=== PATIENT | male | born 1935 | race Caucasian/White ===

== ENCOUNTER 2017-11-15 00:32 | Emergency (ER) | payer MEDICARE ==
[~2017-11-15] VITALS: Ht 172.7 cm; Wt 77.1 kg
[~2017-11-15 00:32] MED LIST: ACET325 PO; ALPR1 PO; ASPI81CH; Antacid-Simeth360 ML PO; BISA10S PR; CALGLU500; CHOL10002 PO; CICL.77TC TOP; CLIN300 PO; CLOB.05TC TOP; CYCL10 PO; DEPO-TESTOSTERONE IM; DILT120ERA PO; DOCU100 PO; Depo-Testos200 MG/ML IM; ESCI10 PO; FAMO20 PO; FOSI10; FOSI10 PO; Fleet Enema132 ML PR; Florastor250 MG PO; Fosinopril Sodi20 MG PO; GLYCAS PR; HYDACE10B PO; HYDACE5325 PO; HYDR1TAB94; IBUP600; IPRA.03NI; LANS30EC PO; Lyrica75 MG PO; META800 PO; MULVITMIND PO; MULVITMINF; Milk Of Ma400 MG/5 M PO; NAPR220; OXYC5 PO; PARO10; POLY500; PRAV10; PREG150 PO; PREG75 PO; PROM25 PO; ROSU5 PO; TAMS.4ER; Thera Tears1 EAC1 BOTHEYES; Thera Tears1 EAC1 OP; VENL150ER PO; WARF4; WARF5 PO; WARF6 PO; XARELTO15 MG PO; [UNRECOGNIZED DRUG - OTHER] PO
[2017-11-15 01:43] LABS: BASOPHILS ABSOLUTE AUTO 0.02 K/mm3 (0.00-0.23); BASOPHILS PERCENT AUTO 0 % (0-2); EOSINOPHILS ABSOLUTE AUTO 0.08 K/mm3 (0.00-0.68); EOSINOPHILS PERCENT AUTO 1 % (0-6); Hematocrit 49.5 % (37.0-53.0); Hemoglobin 16.2 g/dL (13.5-17.5); IMMATURE GRAN ABSOLUTE AUTO 0.02 K/mm3 (0.00-0.10); IMMATURE GRAN PERCENT AUTO 0 % (0-1); LYMPHOCYTES ABSOLUTE AUTO 1.15 K/mm3 (0.84-5.20); LYMPHOCYTES PERCENT AUTO 18 % (21-46); MONOCYTES ABSOLUTE AUTO 0.76 K/mm3 (0.16-1.47); MONOCYTES PERCENT AUTO 12 % (4-13); Mean Corpuscular HGB 30.1 pg (26.0-34.0); Mean Corpuscular HGB Conc 32.7 g/dL (31.5-36.5); Mean Corpuscular Volume 92 fL (80-100); NEUTROPHILS PERCENT AUTO 68 % (41-73); Platelet Count 178 K/mm3 (150-400); RDW Coefficient Variation 15.3 % (11.7-14.2); RDW Standard Deviation 51.5 fL (35.1-46.3); Red Blood Cell Count 5.39 M/mm3 (4.30-5.90); White Blood Cell Count 6.33 K/mm3 (4.00-11.30)
[2017-11-15 02:02] LABS: Alanine Aminotransfer (ALT/SGP 32 U/L (12-78); Albumin, Blood 3.3 g/dL (3.4-5.0); Albumin/Globulin Ratio 1.1 (0.8-1.8); Alk Phos 82 U/L (50-136); Anion Gap 7 mmol/L (6-16); Aspartate Aminotrans (AST/SGOT 26 U/L (12-37); Bilirubin, Total 0.3 mg/dL (0.1-1.0); Blood Urea Nitrogen 17 mg/dL (8-24); Bun/Creatinine Ratio 18.6 (12.0-20.0); CO2, Blood 24 mmol/L (21-32); Calcium, Blood 9.1 mg/dL (8.5-10.1); Chloride, Blood 112 mmol/L (98-108); Creatinine, Blood 0.91 mg/dL (0.60-1.20); Glomerular Filtration Rate >60 (60-); Glucose, Blood 104 mg/dL (70-99); Potassium, Blood 4.4 mmol/L (3.5-5.5); Sodium, Blood 143 mmol/L (136-145); Total Protein, Blood 6.3 g/dL (6.4-8.2)
[2017-11-15] MEDS ORDERED: Flomax0.4 MG PO (03:30)
[2017-11-15] MEDS ORDERED: Zofran Odt4 MG SL (03:30)
[2017-11-15] MEDS ORDERED: Norco 5-325 Ta1 EACH PO (03:30)
== END 2017-11-15 04:00 | disposition home or self-care (01) ==
LOC: ER 00:32
PROVIDERS: Emergency Medicine
DX: N20.0 Calculus of kidney (principal); Z88.8 Allergy status to other drugs, medicaments and biological substances; Z79.899 Other long term (current) drug therapy; Z79.01 Long term (current) use of anticoagulants; Z79.891 Long term (current) use of opiate analgesic; I10 Essential (primary) hypertension; E78.5 Hyperlipidemia, unspecified; F32.9 Major depressive disorder, single episode, unspecified
CPT/HCPCS: 74176; 80053; 81000; 85025; 93005; 93010; 96374; 96375; 99284; J1170; J2405; J3010

== ENCOUNTER 2017-12-11 14:14 | Emergency (ER) | payer MEDICARE ==
[~2017-12-11] VITALS: Ht 170.2 cm; Wt 88.5 kg
[~2017-12-11 14:14] MED LIST changes: +Flomax0.4 MG PO; +Norco 5-325 Ta1 EACH PO; +Zofran Odt4 MG SL
== END 2017-12-11 17:45 | disposition home or self-care (01) ==
LOC: ER 14:14
DX: M54.5 Low back pain (principal); G89.29 Other chronic pain; I10 Essential (primary) hypertension; E78.5 Hyperlipidemia, unspecified; F32.9 Major depressive disorder, single episode, unspecified; Z88.8 Allergy status to other drugs, medicaments and biological substances; Z79.899 Other long term (current) drug therapy; Z79.01 Long term (current) use of anticoagulants; Z86.711 Personal history of pulmonary embolism
CPT/HCPCS: 72100; 96372; 99284; J1170

== ENCOUNTER → 2018-12-27 | Outpatient (CLI) | payer MEDICARE | END | disposition home or self-care (01) | LOC: LAB SHORT 16:55 → LAB 16:55 | DX: L73.8 Other specified follicular disorders (principal) | CPT/HCPCS: 87070; 87205 ==

== ENCOUNTER 2019-06-15 06:59 | Day surgery (SDC) | payer MEDICARE ==
[~2019-06-15 06:59] MED LIST changes: +Afrin15 ML; +CLINGEL; +DOXY100 PO; +MIRALAX17 GM; +Prevacid Soluta30 MG PO; +Vitamin B Comple1 EA PO; -WARF4; +WARF4 PO
--- NOTE | 2019-06-15 07:17 | NUR ---
History, Chart, Medications and Allergies reviewed before start of procedure. Patient confirms NPO status and agrees with scheduled surgery. Patient States Post-Procedure ride home has been arranged. Patient denies having an allergy to naloxone, valacyclovir, and sildenafil and requests their removal from his allegery list. States he doesn't recognize most of the allergies/adverse reactions on his list.
--- NOTE | 2019-06-15 08:11 | NUR ---
PATIENT STATES HE LEFT HIS DENTURES AT HOME. HE GAVE HIS WATCH AND NECKLACES TO HIS DAUGHTER FOR SAFE KEEPING.
--- NOTE | 2019-06-15 11:14 | NUR ---
Discharge instructions reviewed with patient. Patient verbalizes understanding. Copy given to patient to take home. PTS DAUGHER PRESENT, REPORTS SHE IS STAYING WITH HIM. Patient States Post-Procedure ride home has been arranged. Discharged via wheelchair to private car for ride home.
--- NOTE | 2019-06-18 13:50 | NUR ---
06/18/19 1350 Imani Garcia VERIFICATIONS: EDIT CHART.
== END 2019-06-15 11:10 | disposition home or self-care (01) ==
LOC: ORSCMMR 06:59 → ORD 08:30 → ORSCMMR 08:30
PROVIDERS: Surgery
PROC: 0DBM8ZX Excision of Descending Colon, Via Natural or Artificial Opening Endoscopic, Diagnostic (ICD-10-PCS; principal; 2019-06-15 08:30)
PROC: 06BY0ZC Excision of Hemorrhoidal Plexus, Open Approach (ICD-10-PCS; principal; 2019-06-15 08:30)
DX: K64.2 Third degree hemorrhoids (principal); D37.4 Neoplasm of uncertain behavior of colon; K57.30 Diverticulosis of large intestine without perforation or abscess without bleeding; Z86.010 Personal history of colon polyps; I10 Essential (primary) hypertension; G47.33 Obstructive sleep apnea (adult) (pediatric); K21.9 Gastro-esophageal reflux disease without esophagitis; E78.00 Pure hypercholesterolemia, unspecified; Z79.899 Other long term (current) drug therapy
CPT/HCPCS: 88304; J1100; J1885; J2250; J2405; J2704; J3010; J7120

== ENCOUNTER → 2019-08-09 | Outpatient (CLI) | payer MEDICARE | END | disposition home or self-care (01) | LOC: LAB 15:02 → LAB SHORT 15:02 | DX: L08.0 Pyoderma (principal) | CPT/HCPCS: 87070; 87205 ==

== ENCOUNTER 2020-08-07 06:50 | Emergency (ER) | payer MEDICARE ==
[~2020-08-07] VITALS: Ht 182.9 cm; Wt 99.8 kg
[~2020-08-07 06:50] MED LIST changes: +CEPH500; -CHOL10002 PO; +ELIQUIS5 MG PO; +VITAMIN D325 MC3 PO
[2020-08-07] MEDS ORDERED: Robaxin-750750 MG PO (08:24)
== END 2020-08-07 08:46 | disposition home or self-care (01) ==
LOC: ER 06:50
DX: S39.012A Strain of muscle, fascia and tendon of lower back, initial encounter (principal); G89.29 Other chronic pain; I10 Essential (primary) hypertension; E78.5 Hyperlipidemia, unspecified; F32.9 Major depressive disorder, single episode, unspecified; Z79.01 Long term (current) use of anticoagulants; Z88.1 Allergy status to other antibiotic agents; Z88.8 Allergy status to other drugs, medicaments and biological substances; Z79.899 Other long term (current) drug therapy; X58.XXXA Exposure to other specified factors, initial encounter
CPT/HCPCS: 72100; 99283-25

== ENCOUNTER → 2020-09-09 | Outpatient (CLI) | payer MEDICARE ==
[~2020-09-09] MED LIST changes: +Robaxin-750750 MG PO
[2020-09-09 15:49] LABS: Calcium, Urine 10.7 mg/dL (< 17.5); Calcium, Urine Calculation 120.4 mg/24hrs (42.0-353.0)
== END ==
LOC: LAB 09:30 → LAB SHORT 09:30 → LAB FUT 08-27 17:30
PROVIDERS: Internal Medicine
DX: E83.52 Hypercalcemia (principal)
CPT/HCPCS: 81050; 82340

== ENCOUNTER → 2021-07-28 | Outpatient (CLI) | payer MEDICARE | END | disposition home or self-care (01) | LOC: LAB SHORT 15:45 → LAB 15:45 | DX: C44.622 Squamous cell carcinoma of skin of right upper limb, including shoulder (principal); L57.0 Actinic keratosis | CPT/HCPCS: 88305 ==

== ENCOUNTER → 2021-10-05 | Outpatient (CLI) | payer MEDICARE | LOC: LAB SHORT 08:12 | DX: D48.5 Neoplasm of uncertain behavior of skin (principal); D04.21 Carcinoma in situ of skin of right ear and external auricular canal; L90.5 Scar conditions and fibrosis of skin | CPT/HCPCS: 88305 ==

== ENCOUNTER 2022-02-08 13:23 | Day surgery (SDC) | payer MEDICARE ==
[~2022-02-08] VITALS: Ht 170.2 cm; Wt 92.2 kg
== END 2022-02-08 16:20 | disposition home or self-care (01) ==
LOC: ORSCSDS 13:23
PROVIDERS: Internal Medicine Gastroenterology
PROC: 0D757ZZ Dilation of Esophagus, Via Natural or Artificial Opening (ICD-10-PCS; principal; 2022-02-08 15:00)
PROC: 0DB58ZX Excision of Esophagus, Via Natural or Artificial Opening Endoscopic, Diagnostic (ICD-10-PCS; principal; 2022-02-08 15:00)
PROC: 0DB78ZX Excision of Stomach, Pylorus, Via Natural or Artificial Opening Endoscopic, Diagnostic (ICD-10-PCS; principal; 2022-02-08 15:00)
DX: R13.14 Dysphagia, pharyngoesophageal phase (principal); K21.00 Gastro-esophageal reflux disease with esophagitis, without bleeding; K22.2 Esophageal obstruction; I10 Essential (primary) hypertension; G47.33 Obstructive sleep apnea (adult) (pediatric); Z79.899 Other long term (current) drug therapy; Z79.01 Long term (current) use of anticoagulants
CPT/HCPCS: 88305; 88312; 88342; A9270; J2704; J7120

== ENCOUNTER → 2022-03-24 | Outpatient (CLI) | payer MEDICARE | END | disposition home or self-care (01) | LOC: PLD 14:53 → LAB SHORT 14:53 | DX: L57.0 Actinic keratosis (principal) | CPT/HCPCS: 88305 ==

== ENCOUNTER 2023-06-27 11:43 | Day surgery (SDC) | payer MEDICARE ==
[~2023-06-27] VITALS: Ht 170.2 cm; Wt 91.5 kg
[2023-06-27] MEDS ORDERED: AFRIN15 M6 (12:11)
[2023-06-27] MEDS ORDERED: NEURIVA (12:11)
[2023-06-27 13:54] VITALS: BP 109/73
== END 2023-06-27 13:54 | disposition home or self-care (01) ==
LOC: ORSCSDS 11:43
PROVIDERS: Internal Medicine Gastroenterology
PROC: 0DB48ZX Excision of Esophagogastric Junction, Via Natural or Artificial Opening Endoscopic, Diagnostic (ICD-10-PCS; principal; 2023-06-27 13:15)
PROC: 0DB68ZX Excision of Stomach, Via Natural or Artificial Opening Endoscopic, Diagnostic (ICD-10-PCS; principal; 2023-06-27 13:15)
PROC: 0D758ZZ Dilation of Esophagus, Via Natural or Artificial Opening Endoscopic (ICD-10-PCS; principal; 2023-06-27 13:15)
DX: R13.10 Dysphagia, unspecified (principal); K21.00 Gastro-esophageal reflux disease with esophagitis, without bleeding; K29.00 Acute gastritis without bleeding; K31.A0 Gastric intestinal metaplasia, unspecified; K22.2 Esophageal obstruction; J44.9 Chronic obstructive pulmonary disease, unspecified; I12.9 Hypertensive chronic kidney disease with stage 1 through stage 4 chronic kidney disease, or unspecified chronic kidney disease; N18.9 Chronic kidney disease, unspecified; G47.33 Obstructive sleep apnea (adult) (pediatric); Z86.711 Personal history of pulmonary embolism; Z87.11 Personal history of peptic ulcer disease; Z79.01 Long term (current) use of anticoagulants; Z79.899 Other long term (current) drug therapy
CPT/HCPCS: 82947; 88305; 88312; 88342; J2704; J7120

== ENCOUNTER → 2023-07-25 | Outpatient (CLI) | payer MEDICARE ==
[~2023-07-25] MED LIST changes: +AFRIN15 M6; +NEURIVA
[2023-07-25 18:17] LABS: Calcium, Urine 10.3 mg/dL (< 17.5); Calcium, Urine Calculation 72.1 mg/24hrs (42.0-353.0)
== END | disposition home or self-care (01) ==
LOC: LAB 07:00 → LAB SHORT 07:00
PROVIDERS: Internal Medicine
DX: E83.52 Hypercalcemia (principal)
CPT/HCPCS: 81050; 82340

== ENCOUNTER 2024-03-28 20:53 | Emergency (ER) | payer MEDICARE ==
[~2024-03-28] VITALS: Ht 170.2 cm; Wt 88.5 kg
[~2024-03-28 20:53] MED LIST changes: -CEPH500; +CEPH500 PO
[2024-03-28 22:24] LABS: BASOPHILS ABSOLUTE AUTO 0.02 K/mm3 (0.00-0.23); BASOPHILS PERCENT AUTO 0 % (0-2); EOSINOPHILS ABSOLUTE AUTO 0.04 K/mm3 (0.00-0.68); EOSINOPHILS PERCENT AUTO 0 % (0-6); Hematocrit 48.9 % (37.0-53.0); IMMATURE GRAN ABSOLUTE AUTO 0.11 K/mm3 (0.00-0.10); IMMATURE GRAN PERCENT AUTO 1 % (0-1); LYMPHOCYTES ABSOLUTE AUTO 2.19 K/mm3 (0.84-5.20); LYMPHOCYTES PERCENT AUTO 22 % (21-46); MONOCYTES ABSOLUTE AUTO 2.16 K/mm3 (0.16-1.47); MONOCYTES PERCENT AUTO 22 % (4-13); Mean Corpuscular HGB 30.7 pg (26.0-34.0); Mean Corpuscular HGB Conc 32.7 g/dL (31.5-36.5); Mean Corpuscular Volume 94 fL (80-100); Mean Platelet Volume 9.9 fL (9.1-12.4); NEUTROPHILS ABSOLUTE AUTO 5.41 K/mm3 (1.96-9.15); NEUTROPHILS PERCENT AUTO 54 % (41-73); Platelet Count 174 K/mm3 (150-400); RDW Coefficient Variation 13.2 % (11.7-14.2); RDW Standard Deviation 44.9 fL (35.1-46.3); Red Blood Cell Count 5.21 M/mm3 (4.30-5.90); White Blood Cell Count 9.93 K/mm3 (4.00-11.30)
[2024-03-28 22:47] LABS: Albumin, Blood 3.9 g/dL (3.4-5.0); Albumin/Globulin Ratio 1.1 (0.8-1.8); Bilirubin, Total 0.5 mg/dL (0.1-1.0); Bun/Creatinine Ratio 20.8 (12.0-20.0); Calcium, Blood 9.8 mg/dL (8.5-10.1); Creatinine, Blood 1.01 mg/dL (0.60-1.20); Globulin, Blood 3.4 g/dL (2.2-4.0); Potassium, Blood 4.5 mmol/L (3.5-5.5); Total Protein, Blood 7.3 g/dL (6.4-8.2)
[2024-03-28] MEDS ORDERED: Lidocaine 4% 1 Patch TOP ONE (23:15)
[2024-03-29] MEDS ORDERED: Ketorolac Tromethamine 30mg Vial IV ONE ×2 (00:10→05:25)
[2024-03-29] MEDS ORDERED: LIDO700A20 TOP (04:51)
[2024-03-29 04:55] VITALS: BP 130/75
== END 2024-03-29 06:10 | disposition home or self-care (01) ==
LOC: ER 20:53
PROVIDERS: Physician Assistant
DX: S22.41XA Multiple fractures of ribs, right side, initial encounter for closed fracture (principal); S20.20XA Contusion of thorax, unspecified, initial encounter; G47.33 Obstructive sleep apnea (adult) (pediatric); I12.9 Hypertensive chronic kidney disease with stage 1 through stage 4 chronic kidney disease, or unspecified chronic kidney disease; N18.9 Chronic kidney disease, unspecified; E78.5 Hyperlipidemia, unspecified; K21.9 Gastro-esophageal reflux disease without esophagitis; W18.30XA Fall on same level, unspecified, initial encounter; Z79.899 Other long term (current) drug therapy; Z88.5 Allergy status to narcotic agent; Z88.1 Allergy status to other antibiotic agents; Z88.8 Allergy status to other drugs, medicaments and biological substances
CPT/HCPCS: 71101; 74177; 80053; 85025; 96374-59; 96376; 99284-25; A9270; J1885; Q9967

== ENCOUNTER 2024-04-11 12:26 | Observation (INO) | payer MEDICARE ==
[~2024-04-11] VITALS: Ht 170.2 cm; Wt 90.6 kg
[~2024-04-11 12:26] MED LIST changes: +LIDO700A20 TOP
[2024-04-11] MEDS ORDERED: Acetaminophen 500 MG Tab PO ONE (13:30)
[2024-04-11] MEDS ORDERED: Methocarbamol 500 MG Tab PO ONE (14:20)
[2024-04-11] MEDS ORDERED: HYDROcodone 5-APAP 325 TAB PO PRN (17:05)
[2024-04-11] MEDS ORDERED: Methocarbamol 500 MG Tab PO PRN (17:10)
[2024-04-11 18:25] VITALS: BP 134/94
--- NOTE | 2024-04-11 18:37 | NUR ---
Pt arrival to PCU 8. He is alert, oriented and pleasantly conversant. Three of his 4 daughters are in the room, and his son in law as well at bedside. Pt states he uses a CPAP at home, but doesn't want to have it tonight. 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 Vital signs are stable. Pt denies any pain except for his chronic pain in his neck and back. He is sitting on the side of the bed.
[2024-04-11 20:10] VITALS: BP 147/73
[2024-04-11] MEDS ORDERED: Cephalexin Monohydrate 500 MG Cap PO SCH (21:00)
[2024-04-11] MEDS ORDERED: Pregabalin 75 MG Cap PO SCH (21:00)
[2024-04-11] MEDS ORDERED: Cephalexin Monohydrate 250 MG/5 ML UD BTL PO SCH (21:00)
[2024-04-11] MEDS ORDERED: Simethicone 80 MG Chew PO PRN (21:30)
[2024-04-11 23:16] VITALS: BP 150/92
[2024-04-12 04:08] VITALS: BP 118/49
--- NOTE | 2024-04-12 04:48 | NUR ---
SHIFT SUMMARY PATIENT ALERT AND ORIENTED X4. MEDICATED PER EMAR FOR PAIN AND GAS. PATIENT'S REPEAT HEAD CT SHOWED THAT HIS HEMATOMA WAS STABLE, AT [address] MERINO IF HE COULD HAVE SOMETHING TO EAT AND DRINK. DR MERINO SAID YES AND TO MAKE HIM NPO AGAIN AT MIDNIGHT PENDING NEXT REPEAT HEAD CT. PATIENT'S NEURO'S HAVE REMAINED INTACT AND UNCHANGED OVERNIGHT. VITAL SIGNS STABLE, PATIENT ON ROOM AIR. WILL CONTINUE TO MONITOR. CALL LIGHT WITHIN REACH.
[2024-04-12] MEDS ORDERED: Citalopram Hydrobromide 10 MG TAB PO SCH (08:00)
[2024-04-12 08:24] VITALS: BP 145/96
--- NOTE | 2024-04-12 11:02 | NUR ---
1030 UPDATE PT USED CALL LIGHT TO ALERT STAFF THAT HE NEEDED TO USE THE RESTROOM. THIS RN PT ROOM TO ASSIST PT. FWW AND GB APPLIED. PT NEEDED SOME ASSISTANCE TO STAND. ONCE ON HIS FEET, PT GAIT VERY UNSTEADY. PT ABLE TO AMBULATE TO BATHROOM WITH MODERATE ASSISTANCE. Tapad NOTIFIED THIS RN THAT PT RHYTHM HAD SOME CHANGES. NOTIFIED OF PT RHYTHM CHANGE WITH PT HAVING SYMPTOMS OF BEING UNSTEADY. PT WORKED WITH PHYSICAL THERAPY MOMENTS AFTER HAVING THE ABOVE SYMPTOMS. PT HR TACHED UP BUT DID NOT HAVE THE SAME RHYTHM CHANGE OR SYMPTOMS. NOTIFIED OF PT ALSO NOT HAVING SYMPTOMS WHEN WORKING WITH THERAPY AND RHYTHM JUST LOOKING TACHY.
[2024-04-12] MEDS ORDERED: HYDROcodone 5-APAP 325 TAB PO PRN (11:15)
[2024-04-12 12:29] VITALS: BP 110/76
[2024-04-12] MEDS ORDERED: Simethicone 80 MG Chew PO PRN (15:55)
[2024-04-12 16:24] VITALS: BP 117/75
--- NOTE | 2024-04-12 18:18 | NUR ---
SHIFT SUMMARY PT A/OX 4 AND COOPERATIVE OF CARE. PT HAD ONE SYMPTOMATIC EPISODE OF PT BEING UNSTEADY ON HIS FEET WITH RHYTHM CHANGE, SEE PREVIOUS NOTES. PT WITH SECOND DEGREE TYPE 2 BLOCK, MD AWARE AND PACER RECOMENDED. OTHER VSS THROUGHOUT SHIFT WITH O2 SATS IN THE 90'S ON RA. NO REPORT OF CHEST PAIN/PRESSURE THROUGHOUT SHIFT. NO REPORT OF SOB/DYSPNEA. SOME OF PT'S FAMILY PRESENT DURING DISCUSSION FROM MD ABOUT NEEDING PACER. NEURO CHECKS CONSISTENT WITH NO CHANGES DURING SHIFT OTHER THAN PREVIOUS RHYTM CHANGE EPISODE.
[2024-04-12 20:42] VITALS: BP 125/75
[2024-04-13 04:50] VITALS: BP 141/98
--- NOTE | 2024-04-13 06:14 | NUR ---
SHIFT SUMMARY PATIENT ALERT AND ORIENTED X4. MEDICATED PER EMAR FOR PAIN. PATIENT ON ROOM AIR WITH SPO2 >90%. VITAL SIGNS STABLE, SINUS RHYTHM ON TELE. NO ACUTE ISSUES NOTED OVERNIGHT. WILL CONTINUE TO MONITOR. CALL LIGHT WITHIN REACH.
[2024-04-13 08:00] VITALS: BP 125/83
[2024-04-13 12:00] VITALS: BP 120/89
[2024-04-13 16:34] VITALS: BP 123/108
--- NOTE | 2024-04-13 18:08 | NUR ---
SHIFT SUMMARY PT A/OX4 AND COOPERATIVE OF CARE. PT ABLE TO EXPRESS NEEDS AND CALLED APPROPIATELY. PT VSS THROUGHOUT SHIFT WITH O2 SATS IN THE 90'S ON RA. NO REPORT OF CHEST PAIN/PRESSURE THROUGHOUT SHIFT. NO REPORT OF SOB. PT SEEN BY CARDIOLOGY TODAY. MACHINE SHOP SUPERVISOR IDENTIFIED RHYTH MOBITZ 1 SECOND DEGREE BLOCK, NO PACER REQUIRED. PT AND DAUGHTERS UPDATED BY MACHINE SHOP SUPERVISOR. PLAN IS FOR ECHO AND MRI OF HEAD. NO SYMPTOMATIC EVENTS THIS SHIFT.
[2024-04-13 20:07] VITALS: BP 116/94
[2024-04-14 00:07] VITALS: BP 147/74
[2024-04-14 05:05] VITALS: BP 133/68
--- NOTE | 2024-04-14 05:45 | NUR ---
SHIFT SUMMARY PATIENT ALERT AND ORIENTED X4. MEDICATED PER EMAR FOR PAIN AND GAS. ON ROOM AIR WITH SPO2 >90%. VITAL SIGNS STABLE, NO EVENTS ON TELE. NO ACUTE ISSUES NOTED OVERNIGHT. WILL CONTINUE TO MONITOR. CALL LIGHT WITHIN REACH.
[2024-04-14 08:16] VITALS: BP 137/111
[2024-04-14 11:49] VITALS: BP 117/78
[2024-04-14 16:24] VITALS: BP 124/101
[2024-04-14] MEDS ORDERED: CEPH500 PO (16:31)
[2024-04-14] MEDS ORDERED: SIME80CH PO (16:40)
--- NOTE | 2024-04-14 17:35 | NUR ---
DISCHARGE UPDATE DISCHARGE PACKET GONE ONVER WITH PT AND PT DAUGHTER AT 1710. DISCHARGE PASKET IN BAG AND WITH PT'S DAUGHTER. PT DISCHARGED AT 1737 VIA WHEELCHAIR AND ON RA. PT ABLE TO TRANSFER SELF TO AND FROM WHEELCHAIR ON HIS OWN, TOLERATED WELL. PERSONAL BELONGINGS WITH PT'S DAUGHTERS AT TIME OF DISHARGE.
== END 2024-04-14 17:44 | disposition home or self-care (01) ==
LOC: ER 12:26 → PCU 12:27
PROVIDERS: ADMIT Family Medicine
DX: S06.5X0A Traumatic subdural hemorrhage without loss of consciousness, initial encounter (principal); W19.XXXA Unspecified fall, initial encounter; I44.1 Atrioventricular block, second degree; L70.9 Acne, unspecified; R42 Dizziness and giddiness; E78.5 Hyperlipidemia, unspecified; G89.29 Other chronic pain; K21.9 Gastro-esophageal reflux disease without esophagitis; G47.33 Obstructive sleep apnea (adult) (pediatric); N40.0 Benign prostatic hyperplasia without lower urinary tract symptoms; F32.A Depression, unspecified; I12.9 Hypertensive chronic kidney disease with stage 1 through stage 4 chronic kidney disease, or unspecified chronic kidney disease; N18.9 Chronic kidney disease, unspecified; Z86.711 Personal history of pulmonary embolism; Z88.5 Allergy status to narcotic agent; Z88.1 Allergy status to other antibiotic agents; Z88.8 Allergy status to other drugs, medicaments and biological substances; Z79.01 Long term (current) use of anticoagulants
CPT/HCPCS: 70450; 70551; 72125; 93306; 97116; 97162; 97530; 99284-25; A9270; G0378

== ENCOUNTER 2024-06-18 10:02 | Day surgery (SDC) | payer MEDICARE ==
[~2024-06-18] VITALS: Ht 167.6 cm; Wt 93.0 kg
[~2024-06-18 10:02] MED LIST changes: +Crestor40 MG PO; +SIME80CH PO
[2024-06-18 10:32] VITALS: BP 159/90
[2024-06-18] MEDS ORDERED: Robaxin750 MG PO (10:38)
[2024-06-18] MEDS ORDERED: NS 1,000 ML IV ONE ×2 (12:07→12:26)
[2024-06-18] MEDS ORDERED: Heparin Sodium 1000 Units/ML 10ML MDV ONE (12:07)
[2024-06-18] MEDS ORDERED: CeFAZolin Sodium 1000 mg Vial ONE (12:07)
[2024-06-18] MEDS ORDERED: CeFAZolin Sodium 2,000 MG VIAL ONE (12:26)
[2024-06-18] MEDS ORDERED: NS 100 ML IV ONE (12:26)
[2024-06-18] MEDS ORDERED: Midazolam HCl 1MG / ML 2ML Vial ONE (12:26)
[2024-06-18] MEDS ORDERED: FentaNYL Citrate 50 MCG/ML 2 ML Injection ONE (12:26)
[2024-06-18 14:19] VITALS: BP 124/87
--- NOTE | 2024-06-18 14:29 | NUR ---
PATIENT ARRIVED BACK TO RECOVERY ROOM SITTING UPRIGHT IN RECLINER, DPPM IN PLACE. SITE C/D/I, NO EVIDENCE OF BLEEDING. VSS ON RA. PATIENT CONVERSING APPROPRIATELY
[2024-06-18 14:38] VITALS: BP 124/86
[2024-06-18 14:45] VITALS: BP 124/79
[2024-06-18 15:00] VITALS: BP 138/99
[2024-06-18 15:52] VITALS: BP 96/78
--- NOTE | 2024-06-18 16:46 | NUR ---
Patient up and dressed with assist, iv site deced by David PINEDA, patient and daughter verbalized understanding of discharge instructions and precautions,arm sling in place, daughter and patient instructed on use and precautions, dressing D&I, no bleeding, no hematoma. patient discharged home via wheel chair, daughter driving
== END 2024-06-18 11:05 | disposition home or self-care (01) ==
LOC: MHTC 10:02
DX: I44.1 Atrioventricular block, second degree (principal)
CPT/HCPCS: 33208; 71046; 99152; 99153; C1785; C1894; C1898; J0690; J1644; J2250; J3010; J7030; J7040; Q9967

== ENCOUNTER → 2024-09-15 | Outpatient (CLI) | payer MEDICARE ==
[~2024-09-15] MED LIST changes: +BENADRYL25 M1 PO; +C COMPLEX1000 M1 PO; +LINE600 PO; +METO25ER PO; +MIRALAX17 GM PO; +Robaxin750 MG PO; +VITAMIN D33000 UNIT PO
[2024-09-17 17:31] LABS: Creatinine Urine 69.7 mg/dL (27.00-270.00)
[2024-09-17 18:05] LABS: Calcium, Urine 8.2 mg/dL (< 17.5); Calcium, Urine Calculation 90.2 mg/24hrs (42.0-353.0)
== END | disposition home or self-care (01) ==
LOC: LAB SHORT 09-15 11:00 → LAB 11:00 → LAB SHORT 11:00
PROVIDERS: Internal Medicine Endocrinology, Diabetes & Metabolism
DX: E21.3 Hyperparathyroidism, unspecified (principal)
CPT/HCPCS: 81050; 82340; 82570

== ENCOUNTER 2024-09-16 23:19 | Inpatient (IN) | payer MEDICARE ==
[~2024-09-16] VITALS: Ht 177.8 cm; Wt 87.5 kg
[~2024-09-16 23:19] MED LIST changes: -BENADRYL25 M1 PO; -C COMPLEX1000 M1 PO; -LINE600 PO; -METO25ER PO; -MIRALAX17 GM PO; -VITAMIN D33000 UNIT PO
[2024-09-16 23:58] LABS: BASOPHILS ABSOLUTE AUTO 0.01 K/mm3 (0.00-0.23); BASOPHILS PERCENT AUTO 0 % (0-2); EOSINOPHILS ABSOLUTE AUTO 0.02 K/mm3 (0.00-0.68); EOSINOPHILS PERCENT AUTO 0 % (0-6); Hematocrit 40.7 % (37.0-53.0); Hemoglobin 13.5 g/dL (13.5-17.5); IMMATURE GRAN PERCENT AUTO 1 % (0-1); LYMPHOCYTES ABSOLUTE AUTO 0.47 K/mm3 (0.84-5.20); LYMPHOCYTES PERCENT AUTO 6 % (21-46); MONOCYTES PERCENT AUTO 15 % (4-13); Mean Corpuscular HGB 30.6 pg (26.0-34.0); Mean Corpuscular HGB Conc 33.2 g/dL (31.5-36.5); Mean Corpuscular Volume 92 fL (80-100); Mean Platelet Volume 9.6 fL (9.1-12.4); NEUTROPHILS ABSOLUTE AUTO 6.37 K/mm3 (1.96-9.15); NEUTROPHILS PERCENT AUTO 78 % (41-73); Platelet Count 136 K/mm3 (150-400); RDW Coefficient Variation 14.2 % (11.7-14.2); RDW Standard Deviation 48.4 fL (35.1-46.3); Red Blood Cell Count 4.41 M/mm3 (4.30-5.90); White Blood Cell Count 8.17 K/mm3 (4.00-11.30)
[2024-09-17 00:16] LABS: Ethanol (Alcohol), Blood, Med <3 mg/dL
[2024-09-17 00:20] LABS: Alanine Aminotransfer (ALT/SGP 33 U/L (12-78); Albumin, Blood 3.5 g/dL (3.4-5.0); Albumin/Globulin Ratio 1.1 (0.8-1.8); Alk Phos 119 U/L (50-136); Anion Gap 8 mmol/L (3-11); Aspartate Aminotrans (AST/SGOT 25 U/L (12-37); Bilirubin, Total 0.5 mg/dL (0.1-1.0); Blood Urea Nitrogen 19 mg/dL (8-24); Bun/Creatinine Ratio 17.9 (12.0-20.0); CO2, Blood 28 mmol/L (21-32); Calcium, Blood 10.2 mg/dL (8.5-10.1); Chloride, Blood 109 mmol/L (98-108); Creatinine, Blood 1.06 mg/dL (0.60-1.20); Globulin, Blood 3.1 g/dL (2.2-4.0); Glomerular Filtration Rate 68 (60-); Glucose, Blood 199 mg/dL (70-99); Phosphorus, Blood 1.6 mg/dL (2.5-4.9); Potassium, Blood 4.8 mmol/L (3.5-5.5); Sodium, Blood 140 mmol/L (136-145); Total Protein, Blood 6.6 g/dL (6.4-8.2)
[2024-09-17 00:31] LABS: Influenza B, PCR NEGATIVE (NEGATIVE); Resp Syncytial Virus, PCR NEGATIVE (NEGATIVE); SARS-Cov-2 (COVID-19) PCR, MMC NEGATIVE (NEGATIVE)
[2024-09-17 00:36] LABS: Influenza A, PCR POSITIVE (NEGATIVE)
[2024-09-17 01:03] LABS: Source, Urine Clean Catch
[2024-09-17 01:06] LABS: Bilirubin, Urine Neg (Neg); Blood, Urine Neg (Neg); Glucose Qualitative, Urine Neg (Neg); Ketones, Urine Neg (Neg); Leukocyte Esterase, Urine Neg (Neg); Nitrite, Urine Neg (Neg); Protein, Urine Neg (Neg); Urobilinogen, Urine NORM (Normal)
[2024-09-17 01:10] LABS: Appearance, Urine Clear (Clear); Color, Urine Yellow (P-Yellow)
[2024-09-17 01:32] LABS: U Amphetamine Screen Not Detected; U Barbituate Screen Not Detected; U Benzodiazapine Screen Not Detected; U Cocaine Screen Not Detected; U Methadone Screen Not Detected; U Methamphetamine Screen Not Detected; U Opiates Screen DETECTED
[2024-09-17 01:33] LABS: U Buprenorphine Screen Not Detected; U Cannabinoids Screen Not Detected; U Oxycodone Screen Not Detected; U Phencyclidine Screen Not Detected
[2024-09-17] MEDS ORDERED: Potassium Phosphate,Monobasic 500 MG Tablet PO ONE (01:40)
[2024-09-17] MEDS ORDERED: NS 1,000 ML IV SCH (01:45)
[2024-09-17] MEDS ORDERED: Azithromycin 500 MG in NS 250 ML IV ONE (01:45)
[2024-09-17] MEDS ORDERED: CefTRIAXone Sodium 1,000 MG in NS 50 ML IV ONE (01:45)
[2024-09-17] MEDS ORDERED: Acetaminophen 500 MG Tab PO ONE (01:45)
[2024-09-17] MEDS ORDERED: Ondansetron HCl 2 MG / ML 2ML Vial IV PRN (02:05)
[2024-09-17] MEDS ORDERED: FLU VACC TS2024-25(6MOS UP)/PF 45 MCG/0.5 ML SYRINGE IM ONE (02:05)
[2024-09-17] MEDS ORDERED: NS 1,000 ML IV ONE (02:05)
[2024-09-17] MEDS ORDERED: Oseltamivir Phosphate 75 MG Cap PO SCH (03:00)
[2024-09-17 06:28] LABS: BASOPHILS ABSOLUTE AUTO 0.01 K/mm3 (0.00-0.23); BASOPHILS PERCENT AUTO 0 % (0-2); EOSINOPHILS ABSOLUTE AUTO 0.01 K/mm3 (0.00-0.68); EOSINOPHILS PERCENT AUTO 0 % (0-6); Hematocrit 36.1 % (37.0-53.0); Hemoglobin 11.8 g/dL (13.5-17.5); IMMATURE GRAN ABSOLUTE AUTO 0.08 K/mm3 (0.00-0.10); IMMATURE GRAN PERCENT AUTO 1 % (0-1); LYMPHOCYTES ABSOLUTE AUTO 0.35 K/mm3 (0.84-5.20); LYMPHOCYTES PERCENT AUTO 4 % (21-46); MONOCYTES ABSOLUTE AUTO 1.28 K/mm3 (0.16-1.47); MONOCYTES PERCENT AUTO 16 % (4-13); Mean Corpuscular HGB 30.3 pg (26.0-34.0); Mean Corpuscular HGB Conc 32.7 g/dL (31.5-36.5); Mean Corpuscular Volume 93 fL (80-100); Mean Platelet Volume 10.2 fL (9.1-12.4); NEUTROPHILS ABSOLUTE AUTO 6.19 K/mm3 (1.96-9.15); NEUTROPHILS PERCENT AUTO 78 % (41-73); Platelet Count 120 K/mm3 (150-400); RDW Coefficient Variation 14.4 % (11.7-14.2); RDW Standard Deviation 48.8 fL (35.1-46.3); Red Blood Cell Count 3.89 M/mm3 (4.30-5.90); White Blood Cell Count 7.92 K/mm3 (4.00-11.30)
[2024-09-17 06:40] LABS: Albumin/Globulin Ratio 1.1 (0.8-1.8); Bilirubin, Total 0.4 mg/dL (0.1-1.0); Bun/Creatinine Ratio 16.7 (12.0-20.0); Calcium, Blood 9.5 mg/dL (8.5-10.1); Creatinine, Blood 1.08 mg/dL (0.60-1.20); Globulin, Blood 2.8 g/dL (2.2-4.0); Potassium, Blood 4.5 mmol/L (3.5-5.5); Total Protein, Blood 5.8 g/dL (6.4-8.2)
[2024-09-17] MEDS ORDERED: Sodium Phosphate 30 MM in Dextrose 5% 500 ML IV STA (07:51)
[2024-09-17] MEDS ORDERED: Lactated Ringer's 1,000 ML IV SCH (07:55)
[2024-09-17] MEDS ORDERED: Lactated Ringer's 1,000 ML IV ONE (08:45)
[2024-09-17] MEDS ORDERED: Azithromycin 500 MG in NS 250 ML IV SCH (09:00)
[2024-09-17] MEDS ORDERED: Enoxaparin 40 MG/0.4 ML SYR SC SCH (09:00)
[2024-09-17] MEDS ORDERED: Citalopram Hydrobromide 20 MG Tab PO SCH (09:00)
[2024-09-17] MEDS ORDERED: Acetaminophen 325 MG TABLET PO PRN (11:35)
[2024-09-17 15:16] VITALS: BP 127/68
[2024-09-17] MEDS ORDERED: HYDROcodone 5-APAP 325 TAB PO PRN (16:35)
--- NOTE | 2024-09-17 18:37 | NUR ---
ADMISSION NOTE/SHIFT SUMMARY PATIENT ADMITTED FROM ED AT 1515. A/OX4, ABLE TO MAKE NEEDS KNOWN. COOPERATIVE WITHS ATFF, FAMILY AT BEDSIDE. UNABLE TO COMPLETE MED REC DUE TO FAMILY AND PATIENT UNAWARE OF MEDS/DOSEAGES, FAMILY REPORTED WOULD BRING LIST TO HOSPITAL IN THE MORNING. PATIENT COMPLAINING OF BACK AND NECK PAIN, MD NOTIFIED VIE TELEPHOEN AND HOME ORDER OF NORCO ADMINSITERED PER NOV. SKIN ASSESSMENT COMPLETED, STAGE 2 PRESSURE INJURY NOTED TO RIGHT BUTTOCK, MEPILEX PLACED. PATIENT INFLUENZA A POSITIVE WITH DROPLET PRECAUTIONS. NO OTHER CONCERNS AT THIS TIME.
[2024-09-17 19:25] VITALS: BP 116/67
[2024-09-17] MEDS ORDERED: CefTRIAXone Sodium 1,000 MG in NS 100 ML IV SCH (21:00)
[2024-09-18 03:26] VITALS: BP 137/76
[2024-09-18] MEDS ORDERED: NS 250 ML IV PRN (03:45)
--- NOTE | 2024-09-18 05:00 | NUR ---
SHIFT SUMM: PT IS A 89 YO FULL CODE WHO WAS ADMITTED FOR AMS AND METABOLIC ENCHEP. PT IS A&O X4 WHO IS IN DROPLET PREC FOR INFLUENZA A. PT HAS BEEN PLESANT AND MAKES NEEDS KNOWN. PT WAS UP TO THE BATHROOM W/ASSISTANCE AND FWW. I CHANGES THE MEPELIX ON STAGE 2 PRESSURE ULCER ON RIGHT BUTTOCKS CHEEK. PT HAS HAD A SORE SHOULDER AND NECK AND HEATING PAD HELPED. PT HAS BEEN REPOSITIONED AND CONT TONIGHT. PT IS ON 2L NC AT BEDTIME FOR LISANDRA.PT IS ON TELE AND HAS A PACEMAKER PACED AT 90. PT HAS HAD LOOSE YELLOW STOOLS. PT HAD DAUGHTER IN THE ROOM AT THE BEGINING OF THE NIGHT. PT TAKES Q4 NORCO SOON HE CAN. PT HAS CALL LIGHT CLOSE AND BED ALARM SET.
[2024-09-18 06:18] LABS: BASOPHILS ABSOLUTE AUTO 0.01 K/mm3 (0.00-0.23); BASOPHILS PERCENT AUTO 0 % (0-2); EOSINOPHILS ABSOLUTE AUTO 0.01 K/mm3 (0.00-0.68); EOSINOPHILS PERCENT AUTO 0 % (0-6); Hematocrit 34.8 % (37.0-53.0); Hemoglobin 11.7 g/dL (13.5-17.5); IMMATURE GRAN ABSOLUTE AUTO 0.08 K/mm3 (0.00-0.10); IMMATURE GRAN PERCENT AUTO 1 % (0-1); LYMPHOCYTES ABSOLUTE AUTO 1.22 K/mm3 (0.84-5.20); LYMPHOCYTES PERCENT AUTO 15 % (21-46); MONOCYTES ABSOLUTE AUTO 2.17 K/mm3 (0.16-1.47); MONOCYTES PERCENT AUTO 27 % (4-13); Mean Corpuscular HGB 30.9 pg (26.0-34.0); Mean Corpuscular HGB Conc 33.6 g/dL (31.5-36.5); Mean Corpuscular Volume 92 fL (80-100); Mean Platelet Volume 10.2 fL (9.1-12.4); NEUTROPHILS ABSOLUTE AUTO 4.43 K/mm3 (1.96-9.15); NEUTROPHILS PERCENT AUTO 56 % (41-73); Platelet Count 107 K/mm3 (150-400); RDW Coefficient Variation 14.3 % (11.7-14.2); RDW Standard Deviation 48.7 fL (35.1-46.3); Red Blood Cell Count 3.79 M/mm3 (4.30-5.90); White Blood Cell Count 7.92 K/mm3 (4.00-11.30)
[2024-09-18 06:42] LABS: Albumin, Blood 2.8 g/dL (3.4-5.0); Bilirubin, Total 0.3 mg/dL (0.1-1.0); Bun/Creatinine Ratio 12.8 (12.0-20.0); Calcium, Blood 9.4 mg/dL (8.5-10.1); Creatinine, Blood 1.09 mg/dL (0.60-1.20); Globulin, Blood 2.9 g/dL (2.2-4.0); Potassium, Blood 3.8 mmol/L (3.5-5.5); Total Protein, Blood 5.7 g/dL (6.4-8.2)
[2024-09-18 07:21] VITALS: BP 149/87
[2024-09-18] MEDS ORDERED: Promethazine HCl 25 MG Tab PO PRN (12:00)
[2024-09-18] MEDS ORDERED: METO25ER PO (12:43)
[2024-09-18] MEDS ORDERED: BENADRYL25 M1 PO (12:54)
[2024-09-18] MEDS ORDERED: C COMPLEX1000 M1 PO (12:55)
[2024-09-18] MEDS ORDERED: Methocarbamol 500 MG Tab PO PRN (12:55)
[2024-09-18] MEDS ORDERED: MIRALAX17 GM PO (12:55)
[2024-09-18] MEDS ORDERED: VITAMIN D33000 UNIT PO (12:55)
[2024-09-18 13:38] LABS: Base Excess Venous 0.5 mmol/L; Bicarbonate Venous 25.1 mmol/L (24.0-30.0); PCO2 Venous 36.9 mmHg (38-42); pH Blood Venous 7.44 (7.34-7.37)
[2024-09-18] MEDS ORDERED: Vancomycin HCL 2,000 MG in NS 500 ML IV SCH (14:00)
[2024-09-18 15:48] VITALS: BP 153/80
[2024-09-18 17:35] LABS: Adenovirus F 40/41 Not Detected (NOT DETECT); Astrovirus Not Detected (NOT DETECT); Campylobacter Sp Not Detected (NOT DETECT); Cryptosporidium Not Detected (NOT DETECT); Cyclospora Cayetanensis Not Detected (NOT DETECT); E. Coli O157 Not Detected (NOT DETECT); Entamoeba Histolytica Not Detected (NOT DETECT); Enteroaggregative E. coli-EAEC Not Detected (NOT DETECT); Enteropathogenic E. coli-EPEC Not Detected (NOT DETECT); Enterotoxigenic E. coli-ETEC Not Detected (NOT DETECT); Giardia Lamblia Not Detected (NOT DETECT); Norovirus GI/GII Not Detected (NOT DETECT); Plesiomonas Shigelloides Not Detected (NOT DETECT); Rotavirus A Not Detected (NOT DETECT); Salmonella Sp Not Detected (NOT DETECT); Sapovirus Not Detected (NOT DETECT); Shiga Toxin-prod E. coli-STEC Not Detected (NOT DETECT); Shigella/Enteroin E. coli-EIEC Not Detected (NOT DETECT); Vibrio Cholerae Not Detected (NOT DETECT); Vibrio Sp Not Detected (NOT DETECT); Yersinia Enterocolitica Not Detected (NOT DETECT)
--- NOTE | 2024-09-18 18:05 | NUR ---
SHIFT SUMMARY PATIENT A/OX4, ABLE TO MAKE NEEDS KNOWN. PLEASANT AND COOPERATIVE WITH CARE. 1 PERSON MINIMAL ASSIST. MRSA DETECTED IN SPUTUM THIS MORNING, PATIENT WITH CONTACT AND DROPLET PRECAUTIONS. PATIENT WITH NAUSEA AND VOMITING THIS AM, PRN ZOFRAN GIVEN INEFFECTIVE. NOTIFIED AND NEW ORDER FOR PHENERGAN PO ADMINISTERED PER NOV. STOOL SAMPLE OBTAINED AND SENT TO LAB. PATIENT WITH LOOSE STOOLS AND REQUESTING IMMODIUM, PENDING STOOL SAMPLE RESULTS. TELEMETRY IN PLACE, NO EVENTS NOTED. PATIENT REFUSING NIGHTLY CPAP WITH RESPIRATORY THERAPY, CONTINUOUS PULSE OX IN PLACE. NO OTHER CONCERNS AT THIS TIME.
[2024-09-18 19:10] VITALS: BP 167/92
[2024-09-18] MEDS ORDERED: Lactobacil 2-S.Thermo-Bifido 1 1 Cap PO SCH (21:00)
[2024-09-18] MEDS ORDERED: Pregabalin 75 MG Cap PO SCH (21:00)
[2024-09-19 03:18] VITALS: BP 166/99
--- NOTE | 2024-09-19 05:08 | NUR ---
SHIFT SUMMARY 89 YR M ADMITTED ON 09/17/24. FULL CODE. NO ACUTE CHANGES THIS SHIFT. PT MEDICATED FOR PAIN PER EMAR. STOOL SAMPLE RESULTS CAME BACK NEGATIVE. PT HAS NOT HAD A BM THIS SHIFT. BED IN LOW POSITION AND CALL LIGHT IN REACH.
[2024-09-19 05:59] LABS: BASOPHILS PERCENT AUTO 0 % (0-2); EOSINOPHILS ABSOLUTE AUTO 0.02 K/mm3 (0.00-0.68); EOSINOPHILS PERCENT AUTO 1 % (0-6); Hematocrit 37.6 % (37.0-53.0); Hemoglobin 12.5 g/dL (13.5-17.5); IMMATURE GRAN ABSOLUTE AUTO 0.05 K/mm3 (0.00-0.10); IMMATURE GRAN PERCENT AUTO 1 % (0-1); LYMPHOCYTES ABSOLUTE AUTO 1.07 K/mm3 (0.84-5.20); LYMPHOCYTES PERCENT AUTO 25 % (21-46); MONOCYTES ABSOLUTE AUTO 1.23 K/mm3 (0.16-1.47); MONOCYTES PERCENT AUTO 29 % (4-13); Mean Corpuscular HGB 30.6 pg (26.0-34.0); Mean Corpuscular HGB Conc 33.2 g/dL (31.5-36.5); Mean Corpuscular Volume 92 fL (80-100); Mean Platelet Volume 10.3 fL (9.1-12.4); NEUTROPHILS ABSOLUTE AUTO 1.87 K/mm3 (1.96-9.15); NEUTROPHILS PERCENT AUTO 44 % (41-73); Platelet Count 102 K/mm3 (150-400); RDW Coefficient Variation 14.4 % (11.7-14.2); RDW Standard Deviation 47.9 fL (35.1-46.3); Red Blood Cell Count 4.09 M/mm3 (4.30-5.90); White Blood Cell Count 4.24 K/mm3 (4.00-11.30)
[2024-09-19] MEDS ORDERED: Pantoprazole Sodium 40 MG Injection IV SCH (06:00)
[2024-09-19 07:38] VITALS: BP 176/104
[2024-09-19 08:14] LABS: Albumin, Blood 2.9 g/dL (3.4-5.0); Albumin/Globulin Ratio 0.9 (0.8-1.8); Bilirubin, Total 0.3 mg/dL (0.1-1.0); Bun/Creatinine Ratio 12.8 (12.0-20.0); Calcium, Blood 9.7 mg/dL (8.5-10.1); Creatinine, Blood 0.94 mg/dL (0.60-1.20); Globulin, Blood 3.1 g/dL (2.2-4.0); Potassium, Blood 3.6 mmol/L (3.5-5.5)
[2024-09-19] MEDS ORDERED: Metoprolol Succinate 25 MG TABCR PO SCH (09:00)
[2024-09-19] MEDS ORDERED: Vancomycin HCL 1,500 MG in NS 250 ML IV SCH (14:00)
[2024-09-19 15:47] VITALS: BP 125/82
--- NOTE | 2024-09-19 17:58 | NUR ---
SUMMARY- PT A/O X3-4. USES CALL LIGHT TO MAKE NEEDS KNOWN. VERBAL, PLEASANT AND COOPERATIVE. USES THE URINAL, ALSO GETS UP TO THE BATHROOM SBA. TOLERATING FOOD AND FLUID. CHRONIC BACK PAIN CONTROLLED WITH NORCO APPROX Q 4-5 HR. ALSO C/O HEADACHE THAT NORCO HELPFUL FOR WELL. TELE A-V PACED 80'S. PT HAS INFREQ COUGH, LUNGS SCATTERED RHONCHI, ENC TO CLEAR SECRETIONS. PT ON ROOM AIR, RESP EVEN UNLABORED. WILL REPORT TO MATEUS PINEDA.
[2024-09-19 19:55] VITALS: BP 148/84
[2024-09-20 03:16] VITALS: BP 177/95
--- NOTE | 2024-09-20 05:11 | NUR ---
SHIFT SUMMARY: Pt is admitted for acute encephalopathy and is a full code. Is alert and able to make needs known. ADLS have been SBA. pain has been managed with PRN medications. Master reports v paced in the 70s. On iso for influenza A.
[2024-09-20 06:02] LABS: BASOPHILS PERCENT AUTO 0 % (0-2); EOSINOPHILS ABSOLUTE AUTO 0.05 K/mm3 (0.00-0.68); EOSINOPHILS PERCENT AUTO 1 % (0-6); Hematocrit 37.9 % (37.0-53.0); Hemoglobin 12.7 g/dL (13.5-17.5); IMMATURE GRAN ABSOLUTE AUTO 0.02 K/mm3 (0.00-0.10); IMMATURE GRAN PERCENT AUTO 1 % (0-1); LYMPHOCYTES ABSOLUTE AUTO 1.28 K/mm3 (0.84-5.20); LYMPHOCYTES PERCENT AUTO 32 % (21-46); MONOCYTES ABSOLUTE AUTO 1.07 K/mm3 (0.16-1.47); MONOCYTES PERCENT AUTO 27 % (4-13); Mean Corpuscular HGB 30.6 pg (26.0-34.0); Mean Corpuscular HGB Conc 33.5 g/dL (31.5-36.5); Mean Corpuscular Volume 91 fL (80-100); Mean Platelet Volume 10.1 fL (9.1-12.4); NEUTROPHILS ABSOLUTE AUTO 1.59 K/mm3 (1.96-9.15); NEUTROPHILS PERCENT AUTO 40 % (41-73); Platelet Count 128 K/mm3 (150-400); RDW Coefficient Variation 14.3 % (11.7-14.2); RDW Standard Deviation 48.1 fL (35.1-46.3); Red Blood Cell Count 4.15 M/mm3 (4.30-5.90); White Blood Cell Count 4.01 K/mm3 (4.00-11.30)
[2024-09-20 06:31] LABS: Albumin, Blood 2.9 g/dL (3.4-5.0); Albumin/Globulin Ratio 0.9 (0.8-1.8); Bilirubin, Total 0.3 mg/dL (0.1-1.0); Bun/Creatinine Ratio 15.4 (12.0-20.0); Calcium, Blood 9.9 mg/dL (8.5-10.1); Creatinine, Blood 0.97 mg/dL (0.60-1.20); Globulin, Blood 3.3 g/dL (2.2-4.0); Potassium, Blood 3.9 mmol/L (3.5-5.5); Total Protein, Blood 6.2 g/dL (6.4-8.2)
[2024-09-20 07:36] VITALS: BP 137/78
[2024-09-20 15:01] VITALS: BP 139/98
[2024-09-20] MEDS ORDERED: Oxymetazoline 0.05% Nasal Relief Spray 15mL BTL PRN (18:40)
--- NOTE | 2024-09-20 19:14 | NUR ---
SHIFT SUMMARY: PT IS A/O X 3-4, SBA WITH FWW. PLEASANT AND COOPERATIVE WITH CARE. PT ON RA. SATS 95% AT REST. PT GETS SOB WITH EXERTION BUT RECOVERS QUICKLY. PT REPORTED STUFFY NOSE SYMPTOMS THIS EVENING. DR. ORO ORDERED AFRIN. NIGHT RN AWARE. PT HAD REPORTS OF PAIN TO LOWER BACK TODAY. NORCO GIVEN AND EFFECTIVE.
[2024-09-20 19:50] VITALS: BP 136/79
[2024-09-21 01:54] VITALS: BP 156/93
[2024-09-21 05:20] LABS: BASOPHILS ABSOLUTE AUTO 0.01 K/mm3 (0.00-0.23); BASOPHILS PERCENT AUTO 0 % (0-2); EOSINOPHILS ABSOLUTE AUTO 0.03 K/mm3 (0.00-0.68); EOSINOPHILS PERCENT AUTO 1 % (0-6); Hematocrit 38.8 % (37.0-53.0); Hemoglobin 12.9 g/dL (13.5-17.5); IMMATURE GRAN ABSOLUTE AUTO 0.04 K/mm3 (0.00-0.10); IMMATURE GRAN PERCENT AUTO 1 % (0-1); LYMPHOCYTES ABSOLUTE AUTO 1.18 K/mm3 (0.84-5.20); LYMPHOCYTES PERCENT AUTO 29 % (21-46); MONOCYTES ABSOLUTE AUTO 1.07 K/mm3 (0.16-1.47); MONOCYTES PERCENT AUTO 26 % (4-13); Mean Corpuscular HGB 30.4 pg (26.0-34.0); Mean Corpuscular HGB Conc 33.2 g/dL (31.5-36.5); Mean Corpuscular Volume 91 fL (80-100); NEUTROPHILS PERCENT AUTO 44 % (41-73); Platelet Count 131 K/mm3 (150-400); RDW Coefficient Variation 14.1 % (11.7-14.2); RDW Standard Deviation 47.1 fL (35.1-46.3); Red Blood Cell Count 4.25 M/mm3 (4.30-5.90); White Blood Cell Count 4.13 K/mm3 (4.00-11.30)
[2024-09-21 05:45] LABS: Albumin, Blood 3.1 g/dL (3.4-5.0); Bilirubin, Total 0.4 mg/dL (0.1-1.0); Bun/Creatinine Ratio 17.3 (12.0-20.0); Calcium, Blood 10.5 mg/dL (8.5-10.1); Creatinine, Blood 1.1 mg/dL (0.60-1.20); Globulin, Blood 3.1 g/dL (2.2-4.0); Potassium, Blood 4.1 mmol/L (3.5-5.5); Total Protein, Blood 6.2 g/dL (6.4-8.2)
[2024-09-21 07:07] VITALS: BP 156/80
[2024-09-21 13:37] LABS: Vancomycin, Trough 13.5 ug/mL (5.0-10.0)
[2024-09-21 15:19] VITALS: BP 123/72
[2024-09-21] MEDS ORDERED: LINE600 PO (16:45)
--- NOTE | 2024-09-21 18:41 | NUR ---
DISCHARGE SUMMARY: PT DISCHARGED HOME TODAY WITH DAUGHTER. ASSISTED PT WITH PACKING UP HIS BELONGINGS. DISCUSSED DISCHARGE INSTRUCTIONS AND MEDICATIONS WITH PATIENT AND DAUGHTER. PT/DAUGHTER V/U. PT ESCORTED TO POV VIA WHEELCHAIR BY MICHAEL. BELONGINGS PACKED UP AND SENT WITH DAUGHTER.
== END 2024-09-21 18:37 | disposition home or self-care (01) | DRG 871 ==
LOC: ER 23:19 → ERHOLD 09-17 02:32 → MEDS 09-17 15:08
PROVIDERS: Emergency Medicine; Family Medicine; ADMIT Internal Medicine
DX: A41.89 Other specified sepsis (principal); G92.8 Other toxic encephalopathy; G93.41 Metabolic encephalopathy; J10.08 Influenza due to other identified influenza virus with other specified pneumonia; J15.212 Pneumonia due to Methicillin resistant Staphylococcus aureus; J96.01 Acute respiratory failure with hypoxia; E44.0 Moderate protein-calorie malnutrition; E87.21 Acute metabolic acidosis; J47.0 Bronchiectasis with acute lower respiratory infection; R65.20 Severe sepsis without septic shock; A41.02 Sepsis due to Methicillin resistant Staphylococcus aureus; E86.0 Dehydration; F32.A Depression, unspecified; E83.39 Other disorders of phosphorus metabolism; N18.9 Chronic kidney disease, unspecified; I12.9 Hypertensive chronic kidney disease with stage 1 through stage 4 chronic kidney disease, or unspecified chronic kidney disease; G47.33 Obstructive sleep apnea (adult) (pediatric); M79.7 Fibromyalgia; H91.93 Unspecified hearing loss, bilateral; E78.5 Hyperlipidemia, unspecified; G62.9 Polyneuropathy, unspecified; Z86.711 Personal history of pulmonary embolism; Z88.5 Allergy status to narcotic agent; Z88.6 Allergy status to analgesic agent; Z88.8 Allergy status to other drugs, medicaments and biological substances; Z88.1 Allergy status to other antibiotic agents; Z97.4 Presence of external hearing-aid; Z68.28 Body mass index [BMI] 28.0-28.9, adult
CPT/HCPCS: 0241U; 36415; 70450; 71045; 71260; 72125; 80053; 80202; 80320; 81003; 82803; 82947; 83605; 83735; 83880; 84100; 84145; 84443; 85025; 87070; 87077; 87147; 87186; 87205; 87507; 93005; 93010; 94762; 96374-59; 99285-25; A9270; J0456; J0696; J1650; J2405; J2470; J3370; J7030; J7040; J7050; J7060; J7120; Q9967

== ENCOUNTER → 2024-09-24 | Outpatient (CLI) | payer MEDICARE ==
[~2024-09-24] MED LIST changes: +BENADRYL25 M1 PO; +C COMPLEX1000 M1 PO; +LINE600 PO; +METO25ER PO; +MIRALAX17 GM PO; +VITAMIN D33000 UNIT PO
[2024-09-25 14:06] LABS: C DIFFICILE DNA NEGATIVE (Negative)
== END ==
LOC: LAB SHORT 22:00 → LAB 22:00 → LAB FUT 09-24 16:40
PROVIDERS: Internal Medicine
DX: R19.7 Diarrhea, unspecified (principal)
CPT/HCPCS: 87493

== ENCOUNTER 2024-11-03 15:12 | Emergency (ER) | payer MEDICARE ==
[~2024-11-03] VITALS: Ht 170.2 cm; Wt 86.2 kg
[2024-11-03 15:55] LABS: BASOPHILS ABSOLUTE AUTO 0.01 K/mm3 (0.00-0.23); BASOPHILS PERCENT AUTO 0 % (0-2); EOSINOPHILS ABSOLUTE AUTO 0.03 K/mm3 (0.00-0.68); EOSINOPHILS PERCENT AUTO 1 % (0-6); Hematocrit 42.9 % (37.0-53.0); Hemoglobin 14.1 g/dL (13.5-17.5); IMMATURE GRAN ABSOLUTE AUTO 0.06 K/mm3 (0.00-0.10); IMMATURE GRAN PERCENT AUTO 1 % (0-1); LYMPHOCYTES ABSOLUTE AUTO 1.62 K/mm3 (0.84-5.20); LYMPHOCYTES PERCENT AUTO 27 % (21-46); MONOCYTES ABSOLUTE AUTO 0.89 K/mm3 (0.16-1.47); MONOCYTES PERCENT AUTO 15 % (4-13); Mean Corpuscular HGB 31.1 pg (26.0-34.0); Mean Corpuscular HGB Conc 32.9 g/dL (31.5-36.5); Mean Corpuscular Volume 95 fL (80-100); Mean Platelet Volume 9.8 fL (9.1-12.4); NEUTROPHILS ABSOLUTE AUTO 3.48 K/mm3 (1.96-9.15); NEUTROPHILS PERCENT AUTO 57 % (41-73); Platelet Count 164 K/mm3 (150-400); RDW Coefficient Variation 13.6 % (11.7-14.2); RDW Standard Deviation 47.8 fL (35.1-46.3); Red Blood Cell Count 4.54 M/mm3 (4.30-5.90); White Blood Cell Count 6.09 K/mm3 (4.00-11.30)
[2024-11-03 16:17] LABS: Albumin, Blood 3.6 g/dL (3.4-5.0); Albumin/Globulin Ratio 1.1 (0.8-1.8); Bilirubin, Total 0.4 mg/dL (0.1-1.0); Bun/Creatinine Ratio 20.2 (12.0-20.0); Calcium, Blood 10.3 mg/dL (8.5-10.1); Creatinine, Blood 1.04 mg/dL (0.60-1.20); Globulin, Blood 3.2 g/dL (2.2-4.0); Potassium, Blood 4.6 mmol/L (3.5-5.5); Total Protein, Blood 6.8 g/dL (6.4-8.2)
[2024-11-03] MEDS ORDERED: NS 1,000 ML IV SCH (16:25)
[2024-11-03 17:46] VITALS: BP 120/90
== END 2024-11-03 17:46 | disposition home or self-care (01) ==
LOC: ER 15:12
PROVIDERS: Emergency Medicine
DX: E86.0 Dehydration (principal); I95.9 Hypotension, unspecified; I12.9 Hypertensive chronic kidney disease with stage 1 through stage 4 chronic kidney disease, or unspecified chronic kidney disease; N18.9 Chronic kidney disease, unspecified; K21.9 Gastro-esophageal reflux disease without esophagitis; E78.5 Hyperlipidemia, unspecified; N20.0 Calculus of kidney; Z88.5 Allergy status to narcotic agent; Z88.8 Allergy status to other drugs, medicaments and biological substances; Z88.1 Allergy status to other antibiotic agents; Z88.6 Allergy status to analgesic agent; Z88.9 Allergy status to unspecified drugs, medicaments and biological substances; Z88.3 Allergy status to other anti-infective agents; Z79.899 Other long term (current) drug therapy; Z79.51 Long term (current) use of inhaled steroids; Z79.891 Long term (current) use of opiate analgesic; Z79.1 Long term (current) use of non-steroidal anti-inflammatories (NSAID)
CPT/HCPCS: 71045; 80053; 85025; 93005; 93010; 99285-25; J7030

== ENCOUNTER 2025-01-31 11:17 | Emergency (ER) | payer MEDICARE ==
[~2025-01-31] VITALS: Ht 170.2 cm; Wt 88.5 kg
[2025-01-31 11:36] VITALS: BP 135/74
== END 2025-01-31 13:13 | disposition home or self-care (01) ==
LOC: ER 11:17
DX: T82.9XXA Unspecified complication of cardiac and vascular prosthetic device, implant and graft, initial encounter (principal); G47.33 Obstructive sleep apnea (adult) (pediatric); I12.9 Hypertensive chronic kidney disease with stage 1 through stage 4 chronic kidney disease, or unspecified chronic kidney disease; N18.9 Chronic kidney disease, unspecified; E78.5 Hyperlipidemia, unspecified; K21.9 Gastro-esophageal reflux disease without esophagitis; Z79.899 Other long term (current) drug therapy; Z88.5 Allergy status to narcotic agent; Z88.1 Allergy status to other antibiotic agents; Z88.8 Allergy status to other drugs, medicaments and biological substances
CPT/HCPCS: 93005; 93010; 99284-25

== ENCOUNTER 2025-04-01 10:33 | Emergency (ER) | payer MEDICARE ==
[~2025-04-01] VITALS: Ht 170.2 cm; Wt 90.7 kg
[2025-04-01 11:14] VITALS: BP 139/91
== END 2025-04-01 13:52 | disposition home or self-care (01) ==
LOC: ER 10:33
DX: S09.90XA Unspecified injury of head, initial encounter (principal); S16.9XXA Unspecified injury of muscle, fascia and tendon at neck level, initial encounter; I10 Essential (primary) hypertension; E78.5 Hyperlipidemia, unspecified; G47.30 Sleep apnea, unspecified; Z88.5 Allergy status to narcotic agent; Z88.1 Allergy status to other antibiotic agents; Z88.3 Allergy status to other anti-infective agents; Z88.6 Allergy status to analgesic agent; Z88.8 Allergy status to other drugs, medicaments and biological substances; Z79.01 Long term (current) use of anticoagulants; Z79.899 Other long term (current) drug therapy; Z59.89 Other problems related to housing and economic circumstances; W18.30XA Fall on same level, unspecified, initial encounter
CPT/HCPCS: 70450; 99284-25

== ENCOUNTER 2025-09-11 10:12 | Emergency (ER) | payer MEDICARE ==
[~2025-09-11] VITALS: Ht 167.6 cm; Wt 88.5 kg
[2025-09-11 10:48] LABS: BASOPHILS ABSOLUTE AUTO 0.01 K/mm3 (0.00-0.23); BASOPHILS PERCENT AUTO 0 % (0-2); EOSINOPHILS ABSOLUTE AUTO 0.02 K/mm3 (0.00-0.68); EOSINOPHILS PERCENT AUTO 0 % (0-6); Hematocrit 37.0 % (37.0-53.0); Hemoglobin 12.1 g/dL (13.5-17.5); IMMATURE GRAN ABSOLUTE AUTO 0.16 K/mm3 (0.00-0.10); IMMATURE GRAN PERCENT AUTO 1 % (0-1); LYMPHOCYTES ABSOLUTE AUTO 1.35 K/mm3 (0.84-5.20); LYMPHOCYTES PERCENT AUTO 9 % (21-46); MONOCYTES ABSOLUTE AUTO 3.10 K/mm3 (0.16-1.47); MONOCYTES PERCENT AUTO 20 % (4-13); Mean Corpuscular HGB Conc 32.7 g/dL (31.5-36.5); Mean Corpuscular Volume 92 fL (80-100); NEUTROPHILS ABSOLUTE AUTO 10.67 K/mm3 (1.96-9.15); NEUTROPHILS PERCENT AUTO 70 % (41-73); NRBC ABSOLUTE 0.00 K/mm3 (0.00-0.02); NRBC Auto 0.0 /100 WBC (0.0-0.2); Platelet Count 142 K/mm3 (150-400); RDW Coefficient Variation 14.0 % (11.7-14.2); RDW Standard Deviation 47.6 fL (35.1-46.3)
[2025-09-11 11:07] LABS: Alanine Aminotransfer (ALT/SGP 120.0 U/L (12-78); Albumin, Blood 2.9 g/dL (3.4-5.0); Albumin/Globulin Ratio 0.9 (0.8-1.8); Anion Gap 12.0 mmol/L (3-11); Aspartate Aminotrans (AST/SGOT 56.0 U/L (12-37); Bilirubin, Total 0.7 mg/dL (0.1-1.0); Blood Urea Nitrogen 14.0 mg/dL (8-24); CO2, Blood 24.0 mmol/L (21-32); Calcium, Blood 9.5 mg/dL (8.5-10.1); Chloride, Blood 107.0 mmol/L (98-108); Creatinine, Blood 0.95 mg/dL (0.60-1.20); Globulin, Blood 3.1 g/dL (2.2-4.0); Glucose, Blood 146.0 mg/dL (70-99); Potassium, Blood 4.0 mmol/L (3.5-5.5); Sodium, Blood 139.0 mmol/L (136-145); Total Protein, Blood 6.0 g/dL (6.4-8.2)
[2025-09-11 12:55] LABS: Bilirubin, Urine Neg (Neg); Color, Urine Yellow (P-Yellow); Glucose Qualitative, Urine Neg (Neg); Ketones, Urine Neg (Neg); Leukocyte Esterase, Urine Neg (Neg); Protein, Urine 2+ (Neg); Specific Gravity, Urine 1.015 (1.003-1.022); Urobilinogen, Urine NORM (Normal)
[2025-09-11 13:23] LABS: Red Blood Cells, Urine 0-2 /hpf (0-2); White Blood Cells, Urine 0-2 /hpf (0-5)
[2025-09-11 17:15] VITALS: BP 131/70
== END 2025-09-11 17:40 | disposition home or self-care (01) ==
LOC: ER 10:12
PROVIDERS: Emergency Medicine
DX: R53.1 Weakness (principal); I12.9 Hypertensive chronic kidney disease with stage 1 through stage 4 chronic kidney disease, or unspecified chronic kidney disease; N18.9 Chronic kidney disease, unspecified; G47.33 Obstructive sleep apnea (adult) (pediatric); E78.5 Hyperlipidemia, unspecified; K21.9 Gastro-esophageal reflux disease without esophagitis; Z88.5 Allergy status to narcotic agent; Z88.8 Allergy status to other drugs, medicaments and biological substances; Z88.1 Allergy status to other antibiotic agents; Z79.899 Other long term (current) drug therapy
CPT/HCPCS: 73502; 74177; 80053; 81001; 84484; 85025; 93005; 93010; 99285-25; Q9967